=== PATIENT | female | born 1945 | race Hispanic/Latino ===

== ENCOUNTER 2018-04-19 12:56 | Emergency (ER) | payer OTHER ==
[~2018-04-19 12:56] MED LIST: ACET-48 PO; ACET1TAB25 PO; ALEN70TA47 PO; CAL1TABL10 PO; FURO20TA4 PO; GABA-529 PO; LEVO75TA10 PO; MELO-106 PO; METO-409 PO; POTA10TA14 PO; ROSU5TAB PO; SENN8.6T52 PO; SPIR25TA6 PO; TYL3 PO; WARF-67 PO
== END 2018-04-19 14:58 | disposition home or self-care (01) ==
LOC: EDH 12:56
DX: Z43.1 Encounter for attention to gastrostomy (principal); Z87.891 Personal history of nicotine dependence

== ENCOUNTER 2019-09-01 15:01 | Emergency (ER) | payer OTHER ==
[~2019-09-01 15:01] MED LIST changes: -ACET-48 PO; +ACET-49 PO; +ALEN70TA10 PO; -ALEN70TA47 PO
[2019-09-01] MEDS ORDERED: ASPIRIN 325 MG TABLET ONE (15:09)
[2019-09-01 15:25] LABS: BASOPHILS % (AUTO) 0.9 % (0.0-5.0); EOSINOPHILS % (AUTO) 1.2 % (0.0-8.0); HEMATOCRIT 40.1 % (36-48); LYMPHOCYTES % (AUTO) 15.4 % (21.0-51.0); MEAN CORPUSCULAR HEMOGLOBIN 29.2 pg (27.0-33.0); MEAN CORPUSCULAR HGB CONC 33.5 g/dL (32.0-36.0); MEAN CORPUSCULAR VOLUME 87.2 fL (79-99); MONOCYTES % (AUTO) 7.9 % (3.0-13.0); NEUTROPHILS % (AUTO) 74.6 % (40.0-77.0); PLATELET COUNT (AUTO) 212 K/uL (130-400); RED BLOOD CELL COUNT(AUTO) 4.59 MIL/uL (4.00-5.50); RED CELL DISTRIBUTION WIDTH 14.2 % (11.0-15.5); WHITE BLOOD COUNT (AUTO) 5.2 K/uL (4.8-10.8)
[2019-09-01 15:36] LABS: POTASSIUM 3.8 mmol/L (3.5-5.1)
[2019-09-01] MEDS ORDERED: FUROSEMIDE 10 MG/ML 2ML VIAL ONE (18:09)
[2019-09-01 18:11] LABS: APPEARANCE,URINE Cloudy (CLEAR); BILIRUBIN,URINE Negative (NEGATIVE); COLOR,URINE Yellow (YELLOW); GLUCOSE, URINE (UA) Negative (NEGATIVE); KETONES,URINE Negative (NEGATIVE); LEUKOCYTE ESTERASE ,URINE Large (NEGATIVE); NITRATE,URINE Positive (NEGATIVE); OCCULT BLOOD,URINE Trace (NEGATIVE); PH,URINE 6.5 (5.0-8.0); PROTEIN,URINE Negative (NEGATIVE)
[2019-09-01 18:34] LABS: BACTERIA,URINE Moderate /HPF (None Seen); RBC,URINE 0-1 /HPF (0-1)
[2019-09-01 18:36] LABS: SQUAMOUS EPITHELIAL CELL,UR Rare /HPF (0-2)
[2019-09-05] MEDS ORDERED: METH4TAB16 PO (18:53)
[2019-09-05] MEDS ORDERED: POTA-79 PO (18:53)
[2019-09-05] MEDS ORDERED: GABA-529 PO (18:53)
[2019-09-05] MEDS ORDERED: LEVO100T12 PO (18:53)
[2019-09-05] MEDS ORDERED: APIX5TAB PO (18:53)
[2019-09-05] MEDS ORDERED: TRAM50TA4 PO (18:53)
[2019-09-05] MEDS ORDERED: TIZA4TAB5 PO (18:53)
[2019-09-05] MEDS ORDERED: TORS20TA4 PO (18:53)
[2019-09-05] MEDS ORDERED: DILT-36 PO (18:53)
== END 2019-09-01 19:42 | disposition home or self-care (01) ==
LOC: EDH 15:01
DX: R06.00 Dyspnea, unspecified (principal); J81.0 Acute pulmonary edema; I25.10 Atherosclerotic heart disease of native coronary artery without angina pectoris; E07.9 Disorder of thyroid, unspecified; Z86.73 Personal history of transient ischemic attack (TIA), and cerebral infarction without residual deficits
CPT/HCPCS: 36415; 71045; 80048; 81001; 82550; 83880; 84484; 85025; 87804 ×2; 93005; 96374; 99285; J1940